=== PATIENT | female | born 1935 | race Caucasian/White ===

== ENCOUNTER → 2019-06-01 09:04 | Outpatient (CLI) | payer OTHER, SELFPAY ==
[2019-06-01 10:10] LABS: Alanine Aminotransferase 17 IU/L (<35); Albumin 4.8 g/dL (3.5-5.0); Albumin Globulin Ratio 1.5 (1.0-2.8); Alkaline Phosphatase 91 U/L (38-126); Aspartate Aminotransferase 41 IU/L (14-36); Bilirubin Total 0.8 mg/dL (0.2-1.3); Blood Urea Nitrogen 21 mg/dL (7-17); Calcium 10.1 mg/dL (8.4-10.2); Carbon Dioxide 33 mmol/L (22-32); Chloride 100 mmol/L (98-107); Cholesterol 229 mg/dL (140-199); Estimated Glomerular Filt Rate > 60.0 mL/min (>60); Globulin 3.3 g/dL (1.7-4.1); Glucose 93 mg/dL (80-110); HEMOLYSIS < 15 (0-50); Potassium 4.3 mmol/L (3.4-5.1); Sodium 141 mmol/L (137-145); Total Protein 8.1 g/dL (6.3-8.2); Triglycerides 65 mg/dL (35-150)
[2019-06-01 10:21] LABS: HDL Cholesterol 124 mg/dL (40-60)
[2019-06-01 10:22] LABS: LDL Cholesterol Calculated 92 mg/dL (<100); Vitamin D 25 Hydroxy (D3) 41.2 ng/mL (30.0-100.0)
[2019-06-01 10:27] LABS: TSH w/ Reflex to FT4 6.25 uIU/mL (0.47-4.68)
[2019-06-01 11:19] LABS: Free T4, Direct Thyroxine 1.02 ng/dL (0.78-2.19)
[2019-06-01 12:05] LABS: Free T3, Triiodothyronine Free 3.66 pg/mL (2.77-5.27)
[2019-06-05 15:01] LABS: Thyroid Peroxidase Antibodies 2 IU/mL (< 9)
== END ==
PROVIDERS: PCP Family Medicine; Visit Provider Family Medicine
DX: M81.0 Age-related osteoporosis without current pathological fracture (principal); Z78.0 Asymptomatic menopausal state; E78.5 Hyperlipidemia, unspecified; Z86.39 Personal history of other endocrine, nutritional and metabolic disease; Z82.62 Family history of osteoporosis
CPT/HCPCS: 36415; 77080; 80053; 80061; 82306; 84439; 84443; 84481; 86376

== ENCOUNTER → 2019-06-09 09:59 | Outpatient (CLI) | payer OTHER, SELFPAY ==
--- NOTE | 2019-06-09 | DI.MG.S_ITS ---
BILATERAL DIGITAL SCREENING MAMMOGRAM 3D/2D WITH CAD: 06/09/2019 CLINICAL: Routine screening. Comparison is made to exams dated: 06/03/2017 mammogram - [facility], 12/12/2009 mammogram, and 10/05/2007 mammogram - [facility]. The tissue of both breasts is heterogeneously dense. This may lower the sensitivity of mammography. Current study was also evaluated with a Computer Aided Detection (CAD) system. No significant masses, calcifications, or other findings are seen in either breast. There has been no significant interval change. IMPRESSION: NEGATIVE There is no mammographic evidence of malignancy. A 1 year screening mammogram is recommended. This exam was interpreted at Station ID: [id number]. NOTE: For mammograms, a report in lay terms will be sent to the patient. Approximately 15% of breast malignancies will not be visualized mammographically. In the management of a palpable breast mass, a negative mammogram must not discourage biopsy of a clinically suspicious lesion. Electronically Signed By: Michelle leos/medina:06/11/2019 08:47:36 letter sent: Normal Exam ACR BI-RADS Category 1: Negative 3341F
== END ==
PROVIDERS: PCP Family Medicine; Referring Provider Family Medicine; Visit Provider Family Medicine
DX: Z12.31 Encounter for screening mammogram for malignant neoplasm of breast (principal)
CPT/HCPCS: 77063; 77067

== ENCOUNTER → 2019-10-05 11:59 | Outpatient (CLI) | payer OTHER, SELFPAY ==
[2019-10-05 12:31] LABS: Add Manual Diff / Slide Review NO; Basophils Absolute Auto 0 /uL (0-100); Basophils Percent Auto 0.9 % (0-2); Eosinophils Absolute Auto 100 /uL (0-450); Eosinophils Percent Auto 1.5 % (2-4); Hematocrit 43.2 % (36-46); Hemoglobin 14.9 g/dL (12.0-16.0); Lymphocytes Absolute Auto 1300 /uL (1100-4500); Lymphocytes Percent Auto 22.4 % (25-40); Mean Corpuscular HGB Conc 34.3 % (30-36); Mean Corpuscular Hemoglobin 33.9 PG (26-34); Mean Corpuscular Volume 98.8 fL (80-100); Monocytes Absolute Auto 600 /uL (0-900); Monocytes Percent Auto 10.7 % (3-14); Neutrophils Absolute Auto 3600 /uL (1500-7000); Neutrophils Percent Auto 64.5 % (50-75); Platelet Count 207 X10^3/uL (150-400); Red Blood Cell Count 4.38 X10^6/uL (4.0-5.2); Red Cell Distribution Width 12.6 % (11.6-14.8); White Blood Cell Count 5.6 X10^3/uL (4.5-11.0)
[2019-10-05 12:41] LABS: HEMOLYSIS < 15 (0-50); Iron 108 ug/dL (37-170)
[2019-10-05 12:53] LABS: Percent Iron Saturation 36 % (15-50); Total Iron Binding Capacity 298 ug/dL (265-497); Transferrin 249 mg/dL (206-381)
[2019-10-05 12:55] LABS: Alanine Aminotransferase 20 IU/L (<35); Albumin 4.8 g/dL (3.5-5.0); Albumin Globulin Ratio 1.4 (1.0-2.8); Alkaline Phosphatase 84 U/L (38-126); Aspartate Aminotransferase 45 IU/L (14-36); BUN Creatinine Ratio 31.9 (6-22); Bilirubin Total 0.6 mg/dL (0.2-1.3); Blood Urea Nitrogen 22 mg/dL (7-17); Calcium 10.3 mg/dL (8.4-10.2); Carbon Dioxide 30 mmol/L (22-32); Chloride 101 mmol/L (98-107); Estimated Glomerular Filt Rate > 60.0 mL/min (>60); Globulin 3.4 g/dL (1.7-4.1); Glucose 89 mg/dL (80-110); HEMOLYSIS < 15 (0-50); Potassium 4.9 mmol/L (3.4-5.1); Sodium 139 mmol/L (137-145); Total Protein 8.2 g/dL (6.3-8.2)
[2019-10-05 13:00] LABS: Free T3, Triiodothyronine Free 2.75 pg/mL (2.77-5.27); Free T4, Direct Thyroxine 0.91 ng/dL (0.78-2.19)
[2019-10-05 13:23] LABS: Ferritin 91 ng/mL (11-264)
[2019-10-07 00:43] LABS: Anti Thyroglobulin Antibody <1.0 IU/mL (0.0-0.9); Thyroid Peroxidase Antibodies <9 IU/mL (0-34)
== END ==
PROVIDERS: PCP Family Medicine; Referring Provider Family Medicine; Visit Provider Family Medicine
DX: M81.0 Age-related osteoporosis without current pathological fracture (principal); R79.89 Other specified abnormal findings of blood chemistry
CPT/HCPCS: 36415; 80053; 82728; 83540; 83550; 84439; 84443; 84481; 85025; 86376; 86800

== ENCOUNTER → 2019-10-26 10:42 | Outpatient (CLI) | payer OTHER, SELFPAY ==
--- NOTE | 2019-10-26 10:45 | DI.US.S_ITS ---
PROCEDURE: US ABDOMEN LIMITED INDICATIONS: ELEVATED LFTS TECHNIQUE: Real-time scanning was performed of the abdominal and retroperitoneal organs, with image documentation. COMPARISON: None. FINDINGS: Liver: The liver measures 11.5 cm in length and demonstrates a heterogeneous appearance. Gallbladder: The gallbladder wall measures 1 mm diameter. No stones, sludge, pericholecystic fluid, or sonographic James's sign. Biliary ducts: Intrahepatic bile ducts are non-dilated. Extrahepatic bile duct caliber measures 2 mm. Normal is 6-7 mm or less in diameter, or 10 mm or less post-cholecystectomy. Pancreas: Visualized portions of the pancreas are sonographically normal. IMPRESSION: 1. No cholelithiasis or findings to suggest choledocholithiasis or acute cholecystitis. 2. Increased hepatic echogenicity noted likely related to fatty infiltration of the liver but other sources of hepatocellular disease cannot be excluded. Dictated by: Michelle Green M.D. on 10/26/2019 at 13:37 Approved by: Michelle Green M.D. on 10/26/2019 at 13:38
[2019-10-26 13:13] LABS: Gamma Glutamyl Transpeptidase 23 U/L (12-43)
[2019-10-27 06:09] LABS: HBsAg Screen Negative (Negative); Hepatitis A Antibody IgM Negative (Negative); Hepatitis B Core Antibody IgM Negative (Negative); Hepatitis C Antibody <0.1 s/co ratio (0.0-0.9)
== END ==
PROVIDERS: PCP Family Medicine; Referring Provider Family Medicine; Visit Provider Family Medicine
DX: R74.0 Nonspecific elevation of levels of transaminase and lactic acid dehydrogenase [LDH] (principal); R79.89 Other specified abnormal findings of blood chemistry
CPT/HCPCS: 36415; 76705; 80074; 82977

== ENCOUNTER → 2020-05-19 09:55 | Outpatient (CLI) | payer OTHER, SELFPAY ==
[2020-05-19 12:10] LABS: Alanine Aminotransferase 16 IU/L (<35); Albumin 4.4 g/dL (3.5-5.0); Albumin Globulin Ratio 1.6 (1.0-2.8); Alkaline Phosphatase 74 U/L (38-126); Aspartate Aminotransferase 37 IU/L (14-36); BUN Creatinine Ratio 32.9 (6-22); Bilirubin Total 0.5 mg/dL (0.2-1.3); Blood Urea Nitrogen 23 mg/dL (7-17); Calcium 9.6 mg/dL (8.4-10.2); Carbon Dioxide 34 mmol/L (22-32); Chloride 100 mmol/L (98-107); Estimated Glomerular Filt Rate > 60.0 mL/min (>60); Globulin 2.8 g/dL (1.7-4.1); Glucose 89 mg/dL (80-110); HEMOLYSIS < 15 (0-50); Potassium 4.3 mmol/L (3.4-5.1); Sodium 139 mmol/L (137-145); Total Protein 7.2 g/dL (6.3-8.2)
[2020-05-19 12:40] LABS: TSH w/ Reflex to FT4 3.73 uIU/mL (0.47-4.68)
== END ==
PROVIDERS: PCP Family Medicine; Referring Provider Family Medicine; Visit Provider Family Medicine
DX: R74.01 Elevation of levels of liver transaminase levels (principal); I10 Essential (primary) hypertension; R79.89 Other specified abnormal findings of blood chemistry
CPT/HCPCS: 36415; 80053; 84443

== ENCOUNTER → 2021-08-20 10:39 | Outpatient (CLI) | payer OTHER, SELFPAY ==
--- NOTE | 2021-08-20 | DI.MG.S_ITS ---
BILATERAL DIGITAL SCREENING MAMMOGRAM 3D/2D WITH CAD: 08/20/2021 CLINICAL: Routine screening. Comparison is made to exams dated: 06/09/2019 mammogram and 06/03/2017 mammogram - [facility]. The tissue of both breasts is heterogeneously dense. This may lower the sensitivity of mammography. Current study was also evaluated with a Computer Aided Detection (CAD) system. There is an oval focal asymmetry in the right breast at 11 o'clock anterior depth. This is more prominent. No other significant masses, calcifications, or other findings are seen in either breast. IMPRESSION: INCOMPLETE: NEEDS ADDITIONAL IMAGING EVALUATION The oval focal asymmetry in the right breast is indeterminate. Additional views with possible ultrasound are recommended. This exam was interpreted at Station ID: [id number]. NOTE: For mammograms, a report in lay terms will be sent to the patient. Approximately 15% of breast malignancies will not be visualized mammographically. In the management of a palpable breast mass, a negative mammogram must not discourage biopsy of a clinically suspicious lesion. Electronically Signed By: Vinay López M.D. slc/:08/20/2021 12:56:07 letter sent: Additional Imaging Needed ACR BI-RADS Category 0: Incomplete 3340F
== END ==
PROVIDERS: PCP Internal Medicine; Referring Provider Internal Medicine; Visit Provider Internal Medicine
DX: Z12.31 Encounter for screening mammogram for malignant neoplasm of breast (principal)
CPT/HCPCS: 77063; 77067

== ENCOUNTER → 2021-08-25 14:04 | Outpatient (CLI) | payer OTHER, SELFPAY | PROVIDERS: PCP Internal Medicine; Referring Provider Internal Medicine; Visit Provider Internal Medicine | DX: Z13.820 Encounter for screening for osteoporosis (principal); Z78.0 Asymptomatic menopausal state; M81.0 Age-related osteoporosis without current pathological fracture | CPT/HCPCS: 77080 ==

== ENCOUNTER → 2021-11-18 11:59 | Outpatient (CLI) | payer OTHER, SELFPAY ==
--- NOTE | 2021-11-18 12:00 | DI.MG.S_ITS ---
UNILATERAL RIGHT DIGITAL DIAGNOSTIC MAMMOGRAM 3D/2D WITH ADDITIONAL VIEWS: 11/18/2021 CLINICAL: Additional evaluation requested from prior study. Comparison is made to exams dated: 08/20/2021 mammogram, 06/09/2019 mammogram, and 06/03/2017 mammogram - [facility]. The tissue of right breast is heterogeneously dense. This may lower the sensitivity of mammography. The benign oval focal asymmetry in the right breast at 11 o'clock anterior depth is no longer seen. This is not seen in additional views. No other significant masses or calcifications are seen in the breast. IMPRESSION: BENIGN There is no mammographic evidence of malignancy. Return to annual mammogram screening schedule is recommended. Based on the Tyrer Cuzick model (a risk assessment model) the patient's lifetime risk is 0.3% and her 10 year risk is 0.0%. According to the ACR, ACS, and NCCN guidelines, an annual breast MRI exam along with mammogram is recommended if the patient's lifetime risk is 20% or greater. This exam was interpreted at Station ID: Unknown. NOTE: For mammograms, a report in lay terms will be sent to the patient. Approximately 15% of breast malignancies will not be visualized mammographically. In the management of a palpable breast mass, a negative mammogram must not discourage biopsy of a clinically suspicious lesion. Electronically Signed By: Davis turk/medina:11/18/2021 12:26:22 Entry: - 11/19/2021 09:01:14 letter sent: Normal Exam ACR BI-RADS Category 2: Benign Finding(s) 3342F
== END ==
PROVIDERS: PCP Internal Medicine; Referring Provider Internal Medicine; Visit Provider Internal Medicine
DX: R92.8 Other abnormal and inconclusive findings on diagnostic imaging of breast (principal)
CPT/HCPCS: 77065; G0279

== ENCOUNTER → 2022-02-24 12:40 | Outpatient (CLI) | payer OTHER, SELFPAY ==
--- NOTE | 2022-02-24 | DI.RAD.S_ITS ---
PROCEDURE: XR SOFT TISSUE NECK INDICATIONS: Unspecified foreign body in pharynx causing other injury, in TECHNIQUE: 2 views of the neck were acquired. COMPARISON: None. FINDINGS: Airway: The airway appears patent. Soft tissues: Prevertebral soft tissues are normal in thickness. The epiglottis and aryepiglottic folds appear normal. No soft tissue gas. No metallic foreign body identified. Bones: No suspicious bony lesions. Visualized cervical spine is normally aligned. Degenerative changes are seen in the spine. IMPRESSION: No radiopaque foreign body in the neck or upper chest. Dictated by: Bogdan Iglesias M.D. on 02/25/2022 at 8:19 Approved by: Bogdan Iglesias M.D. on 02/25/2022 at 8:20
== END ==
PROVIDERS: PCP Internal Medicine; Referring Provider Dentist; Visit Provider Dentist
DX: T17.208A Unspecified foreign body in pharynx causing other injury, initial encounter (principal)
CPT/HCPCS: 70360

== ENCOUNTER → 2022-07-23 10:12 | Outpatient (CLI) | payer OTHER, SELFPAY ==
--- NOTE | 2022-07-23 10:12 | DI.RAD.S_ITS ---
PROCEDURE: XR FOOT LT MIN 3V INDICATIONS: Left foot injury TECHNIQUE: 3 views of the foot were acquired. COMPARISON: None. FINDINGS: Bones: Mildly displaced, intra-articular fracture the 5th metatarsal base, extending 1.3 cm from the most proximal tip. Soft tissues: No tibiotalar joint effusion. Achilles tendon appears normal. IMPRESSION: Mildly displaced, intra-articular 5th metatarsal base fracture. Dictated by: Khris Zelaya M.D. on 07/23/2022 at 10:31 Approved by: Khris Zelaya M.D. on 07/23/2022 at 10:33
== END ==
PROVIDERS: PCP Internal Medicine; Referring Provider Registered Nurse; Visit Provider Registered Nurse
DX: S92.352A Displaced fracture of fifth metatarsal bone, left foot, initial encounter for closed fracture (principal); M79.672 Pain in left foot; X58.XXXA Exposure to other specified factors, initial encounter
CPT/HCPCS: 73630

== ENCOUNTER → 2023-08-25 12:39 | Outpatient (CLI) | payer OTHER, SELFPAY ==
--- NOTE | 2023-08-25 12:41 | DI.RAD.S_ITS ---
PROCEDURE: XR DEXA AXIAL SKELETON INDICATIONS: Age-related osteoporosis without current pathologic fracture COMPARISON: [facility], , XR DEXA AXIAL SKELETON, 08/25/2021, 14:13. [facility], , XR DEXA AXIAL SKELETON, 06/01/2019, 9:50. FINDINGS: Lumbar Spine: Bone mineral density 1.107 g/cm2, T score 0.5, there is significant interval increase in bone mineral density. Left Hip: Bone mineral density 0.735 g/cm2, T score -1.7. Left Femoral Neck: Bone mineral density 0.558 g/cm2, T score -2.6. Right Hip: Bone mineral density 0.611 g/cm2, T score -2.7. Right Femoral Neck: Bone mineral density 0.531 g/cm2, T score -2.9. Fracture Risk Calculation (when applicable): FRAX not provided due to osteoporosis. (T score greater or equal to -1.0 to: NORMAL) (T score from -1.1 to -2.4: OSTEOPENIA) (T score less than or equal to -2.5: OSTEOPOROSIS) IMPRESSION: Osteoporosis. There is significant interval increase in bone mineral density of the lumbar spine. Dictated by: Vinay López M.D. on 08/26/2023 at 8:36 Approved by: Vinay López M.D. on 08/26/2023 at 8:38
== END ==
LOC: RAD 12:40
PROVIDERS: PCP Internal Medicine; Referring Provider Internal Medicine; Visit Provider Internal Medicine
DX: M81.0 Age-related osteoporosis without current pathological fracture (principal)
CPT/HCPCS: 77080